=== PATIENT | female | born 1990 | race Asian ===

== ENCOUNTER 2018-07-03 17:03 | Emergency (ER) | payer SELFPAY ==
[~2018-07-03] VITALS: Ht 162.6 cm; Wt 81.6 kg
[2018-07-03 17:18] VITALS: BP 131/74
== END 2018-07-03 20:59 | disposition home or self-care (01) ==
LOC: ER 17:08
DX: K52.9 Noninfective gastroenteritis and colitis, unspecified (principal)
CPT/HCPCS: 81002; 81025